=== PATIENT | female | born 1965 | race Caucasian/White ===

== ENCOUNTER → 2016-06-12 | Outpatient (CLI) | payer OTHER ==
--- NOTE | 2016-06-18 09:41 | MM ---
Reason for exam: screening (asymptomatic). Last mammogram was performed 7 years and 1 month ago. History: Patient had first child at age 36. Family history of breast cancer in maternal aunt. Taking hormonal contraceptives for 20 years beginning at age 30. Physical Findings: A clinical breast exam by your physician is recommended on an annual basis and results should be correlated with mammographic findings. MG Screening Mammo w CAD Bilateral CC and MLO view(s) were taken. Prior study comparison: May 10, 2009, mammogram, performed at [facility]. The breast tissue is heterogeneously dense. This may lower the sensitivity of mammography. There is no discrete abnormality. ASSESSMENT: Negative, BI-RAD 1 RECOMMENDATION: Routine screening mammogram of both breasts in 1 year.
== END | disposition home or self-care (01) ==
LOC: RADMAMWWP 09:22
PROVIDERS: ATTEND Family Medicine
DX: Z12.31 Encounter for screening mammogram for malignant neoplasm of breast (principal)

== ENCOUNTER → 2017-10-23 | Outpatient (CLI) | payer OTHER ==
--- NOTE | 2017-10-23 13:59 | BD ---
EXAMINATION TYPE: Axial Bone Density DATE OF EXAM: 10/23/2017 COMPARISON: 11.03.2013 CLINICAL HISTORY: 51 YR OLD FEMALE.....ICD-10 CODE: M85.9 DISORDER OF BONE Height: 62.3 Weight: 153 FRAX RISK QUESTIONS: Family History (Parent hip fracture): YES RISK FACTORS HISTORY OF: History of Wrist Fracture: LT WRIST, JUL, 2017 Family History of Osteoporosis: GRANDMOTHER WITH BROKEN HIP Active: YES Diet low in dairy products/other sources of calcium: NO Postmenopausal woman: NO....LMP 2 WKS AGO Take estrogen and/or progesterone medications: NO, BUT ON BCP FOR 20 YRS NOW...STILL ON THEM MEDICATIONS: Additional Medications: VIT D, MULTIVITAMIN Additional History: VIT D DEFICIENCY EXAM MEASUREMENTS: Bone mineral densitometry was performed using the [employer] System. Bone mineral density as measured about the Lumbar spine is: ----- L1-L4(G/cm2): 1.217 T Score Values are as follows: ----- L1: 0.7 ----- L2: 0.1 ----- L3: 0.0 ----- L4: 0.3 ----- L1-L4: 0.3 Bone mineral density has: Decreased -0.6% since study of: 11.03.2013 Bone mineral density about the R hip (g/cm2): 0.779 Bone mineral density about the L hip (g/cm2): 0.771 T Score values are as follows: -----R Neck: -1.5 -----L Neck: -2.0 -----R Total: -1.8 -----L Total: -1.9 Bone mineral density has: Increased 0.9% since study of: 11.03.2013 FRAX%s: THERE IS A 10.5% CHANCE OF A MAJOR OSTEOPOROTIC FX AND A 1.6% FOR A HIP FX......PROBABILIT Y OF FX IN 10 YRS TIME IMPRESSION: Osteopenia (T Score between -2.5 and -1). There is slightly increased risk of fracture and the patient may be considered for treatment. Re-Screen 2-5 years. NOTE: T-SCORE=SD OF THE YOUNG ADULT MEAN.
--- NOTE | 2017-10-28 09:18 | MM ---
Reason for exam: screening (asymptomatic). Last mammogram was performed 1 year and 4 months ago. History: Patient had first child at age 36. Family history of breast cancer in maternal aunt. Taking hormonal contraceptives for 20 years beginning at age 30. Physical Findings: A clinical breast exam by your physician is recommended on an annual basis and results should be correlated with mammographic findings. MG Screening Mammo w CAD Bilateral CC and MLO view(s) were taken. Prior study comparison: June 12, 2016, bilateral MG screening mammo w CAD. May 10, 2009, mammogram, performed at [facility]. The breast tissue is heterogeneously dense. This may lower the sensitivity of mammography. No suspicious abnormality. No significant changes when compared with prior studies. ASSESSMENT: Negative, BI-RAD 1 RECOMMENDATION: Routine screening mammogram of both breasts in 1 year.
== END | disposition home or self-care (01) ==
LOC: RADMAMWWP 08:38
PROVIDERS: ATTEND Family Medicine
DX: Z12.31 Encounter for screening mammogram for malignant neoplasm of breast (principal); M85.88 Other specified disorders of bone density and structure, other site
CPT/HCPCS: 77067; 77080

== ENCOUNTER → 2019-03-24 | Outpatient (CLI) | payer OTHER ==
--- NOTE | 2019-03-25 01:38 | MR ---
EXAMINATION TYPE: MR lumbar spine wo/w con DATE OF EXAM: 03/24/2019 COMPARISON: MR scan of the pelvis 05/14/2013 HISTORY: Meningocele since , recently experiencing increased pressure lower back CONTRAST: Standard multiplanar, multisequence MRI departmental protocol utilizing 7.5 mL intravenous Gadavist g adolinium contrast. There is bony defect involving multiple sacral segments related to large meningomyelocele. There is e xpansion of the spinal canal from L5 to S5 vertebra. There is large anterior meningocele that measur es 17 cm in length. This is increased 2 cm compared to old exam of 05/14/2013. The anterior posterior m aximum dimension of the meningocele is 13.5 cm unchanged. There is no compression fracture. I see no focal bone destruction. There is large communication of the spinal canal meningomyelocele with the an terior meningocele. The opening is 2.5 cm. I see no free fluid in the pelvis. There is no lumbar paraspinal mass. Sacroiliac joints appear intac t. Visualized kidneys show no hydronephrosis. IMPRESSION: Large anterior meningocele increased slightly in overall length compared to old exam.
== END | disposition home or self-care (01) ==
LOC: RADMRIMAIN 19:27
PROVIDERS: ATTEND Family Medicine
DX: G96.19 Other disorders of meninges, not elsewhere classified (principal)
CPT/HCPCS: 72158; A9585

== ENCOUNTER → 2021-10-25 | Outpatient (CLI) | payer BC ==
--- NOTE | 2021-10-25 10:20 | XR ---
EXAMINATION TYPE: XR foot limited RT DATE OF EXAM: 10/25/2021 CLINICAL HISTORY: pain TECHNIQUE: Frontal, lateral images of the right foot are obtained. COMPARISON: None. FINDINGS: There is no acute fracture/dislocation evident. The joint spaces appear within normal crews its. The overlying soft tissue appears unremarkable. IMPRESSION: There is no acute fracture or dislocation. ICD 10 NO FRACTURE, INITIAL EVALUATION
== END | disposition home or self-care (01) ==
LOC: RADXRMAIN 09:47
PROVIDERS: ATTEND Family Medicine
DX: M79.671 Pain in right foot (principal)

== ENCOUNTER → 2021-11-07 | Outpatient (CLI) | payer BC ==
--- NOTE | 2021-11-08 08:49 | MM ---
Reason for Exam: Screening (asymptomatic). Last mammogram was performed 4 year(s) and 0 month(s) ago. Patient History: Menarche at age 12. First Full-Term at age 36. Late child-bearing (after 31). Postmenopausal. Patient has history of breast feeding. Hormonal Contraceptives for 20 years from age 30 until age 53. Maternal aunt had breast cancer, age 65. Risk Values: Melania 5 year model risk: 1.7%. NCI Lifetime model risk: 12.4%. Prior Study Comparison: 05/10/2009 Screening Mammogram, [facility]. 06/12/2016 Bilateral Screening Mammogram, [facility]. 10/23/2017 Bilateral Screening Mammogram, [facility]. Tissue Density: The breast tissue is heterogeneously dense. This may lower the sensitivity of mammography. Findings: Analyzed By CAD. There is no suspicious group of microcalcifications or new suspicious mass in either breast. Overall Assessment: Negative, BI-RAD 1 Management: Screening Mammogram of both breasts in 1 year. A clinical breast exam by your physician is recommended on an annual basis and results should be correlated with mammographic findings. Electronically signed and approved by: Jonny Franco M.D.
== END | disposition home or self-care (01) ==
LOC: RADMAMWWP 12:28
PROVIDERS: ATTEND Family Medicine
DX: Z12.31 Encounter for screening mammogram for malignant neoplasm of breast (principal); Z78.0 Asymptomatic menopausal state; Z80.3 Family history of malignant neoplasm of breast
CPT/HCPCS: 77063; 77067

== ENCOUNTER → 2022-03-16 | Outpatient (CLI) | payer BC ==
--- NOTE | 2022-03-16 15:54 | MR ---
EXAMINATION TYPE: MR thoracic spine wo/w con DATE OF EXAM: 03/16/2022 COMPARISON: None HISTORY: Mid back pain, history of meningocele since located in low back/sacrum. CONTRAST: Standard multiplanar, multisequence MRI departmental protocol images were obtained without contrast a nd with 7.5 mL intravenous Gadavist gadolinium contrast. The thoracic vertebrae have fairly normal spacing and alignment. There is some straightening of the c ervical spine. No evidence of thoracic paraspinal mass. The thoracic spinal cord appears normal. No e vidence of a mass. No thoracic spinal stenosis. The posterior elements are intact. Contrast images sh ow no pathologic enhancement. No focal bone destruction. IMPRESSION: Negative MRI scan of the thoracic spine. Straightening seen in the lower cervical spine at could rela te to spasm.
== END | disposition home or self-care (01) ==
LOC: RADMRIMAIN 13:25
PROVIDERS: ATTEND Family Medicine
DX: Q05.6 Thoracic spina bifida without hydrocephalus (principal)
CPT/HCPCS: 72157; A9585